=== PATIENT | male | born 1970 ===

== ENCOUNTER 2024-11-13 23:59 | Emergency (ER) | payer OTHER, SELFPAY ==
--- NOTE | ~2024-11-13 | CT_ITS ---
Non-contrast Head CT History: Seizure Technique: Axial non-contrast imaging of the brain was performed. Dose reduction technique was used on this scan by utilizing automated exposure control and iterative reconstruction technique. The dose -length product (DLP) was 681.00 mGy-cm. Findings: There is no evidence of intracranial hemorrhage, mass lesion, or acute infarct. Brain par enchyma appears normal. The ventricles and subarachnoid spaces are normal in size. The calvarium ap pears normal. Mild right maxillary sinus disease partially imaged. The remaining visualized paranasal sinuses and mastoid air cells are clear. Impression: No intracranial abnormality seen. Partially imaged mild right maxillary sinus disease. Reviewed, dictated and finalized at location . Impression: No intracranial abnormality seen. Partially imaged mild right maxillary sinus disease.
--- NOTE | ~2024-11-13 | XR_ITS ---
Portable chest x-ray Comparison: None Clinical History: Seizure Findings: Calcified right basilar granuloma present. Possible minimal bibasilar pulmonary edema or i nterstitial change. Cardiomediastinal silhouette is unremarkable. Bones and soft tissues are unremar kable. Impression: Possible mild bibasilar pulmonary edema or other chronic interstitial change. Calcified right basilar granuloma. Reviewed, dictated and finalized at location . Impression: Possible mild bibasilar pulmonary edema or other chronic interstitial change. Calcified right basilar granuloma.
[2024-11-14] VITALS (14 sets, daily range): BP systolic 172–195; BP diastolic 119–139; PULSE 112–131; RESP 18–30; O2SAT 93–97
--- NOTE | 2024-11-14 00:02 | ECG_ITS ---
Test Date: 2024-11-14 00:04:11 Measurements Intervals [place] Rate: 128 P: 66 AR: 165 QRS: 56 QRSD: 90 T: 53 QT: 322 QTc: 470 Interpretive Statements SINUS TACHYCARDIA LEFT VENTRICULAR HYPERTROPHY AND ST-T CHANGE [VOLTAGE CRITERIA PLUS ST/T ABNORMALITY] ABNORMAL ECG No previous ECG available for comparison Electronically Signed On 11-14-2024 11:34:38 CDT by Jovany Graves M.D.
[2024-11-14] MEDS: SODIUM CHLORIDE 0.9% IV 1,000 ML 999 ML IV CONT (00:22)
[2024-11-14 00:27] LABS: Hematocrit 43.4 % (42.0-52.0); Hemoglobin 15.3 g/dL (14.0-18.0); Immature Granulocyte Percent A 0.5 % (0-0.5); Immature Platelet Fraction Pct 3.8 % (0.9-11.2); Lymphocytes Absolute Auto 0.35 K/mm3 (0.9-3.2); Mean Corpuscular HGB Conc 35.3 g/dl (32-36); Mean Corpuscular Hemoglobin 34.9 pg (26-34); Mean Corpuscular Volume 99.1 fl (80-100); Nucleated Red Blood Cells Absolute Auto 0.000 K/mm3 (0.0-0.012); Nucleated Red Blood Cells Perc 0.0 % (0.0-0.2); Platelet Count Result 115 k/mm3 (150-375); Red Blood Count 4.38 M/mm3 (4.6-6.20); White Blood Count 8.8 K/mm3 (4.5-10.0)
[2024-11-14] MEDS: LORazepam INJ (*CRX) 2 MG/ML VIAL IV PUSH (00:28)
--- OUTSIDE RECORDS SUMMARY | 2024-11-14 00:31 | XMS_ITS | Clinical Summary ---
Author Organization [facility] Address [address] [place] [address] Care Team Providers Care Tamper Operator Name Role Phone Unavailable Primary Care Provider Unavailabl e Source Comments PLEASE NOTE, if this patient is a minor, it may be UNLAWFUL to discuss sensitive information that is contained in these records (such as FAMILY PLANNING, MENTAL HEALTH or SUBSTANCE ABUSE) with the minor patient's parent or other person without the patient's specific authorization.[facility] Allergies No known active allergies Medications No known medications Immunizations Immunization Administration Dates Next Due TDAP 06/03/2023 Social History Tobacco Use Types Packs/Day Years Used Date Smoking Tobacco: Never Assessed Social Connections Answer Date Recorded Connectedness 0 01/18/2024 Financial Resource Strain Answer Date R ecorded Financial Resource Strain 0 2023 Stress Answer Date Recorded Stress 0 06/03/2023 Physical Activity Answer Date Recorded Physical Activity 0 06/03/2023 Food Insecurity Answer Date Recorded Food 0 01/29/2024 Transportation Needs Answer Date Record ed Transportation 0 06/03/2023 Housing Stability Answer Date Recorded Housing 0 06/03/2023 Safety and Environment Answer Date Jorge rded Safety 0 06/03/2023 Utilities Answer Date Recorded Utilities 0 06/03/2023 Employment Answer Date Recorded Stress 0 01/18/2024 Sex and Gender Information Value Date Recorded Sex Assigned at Not on file Legal Sex Male 3:16 PM PST Gender Identity Not on file Sexual Orientation Not on file Last Filed Vital Signs Vital Sign Reading Time Taken Comments Blood Pressure 182/117 06/03/2023 7:25 PM [employer] Pulse 87 06/03/2023 7:25 PM [employer] Temperature 37.3 C (99.2 F) 06/03/2023 5:19 PM [employer] Respiratory Rate 18 06/03/2023 5:19 PM [employer] Oxygen Saturation 96% 06/03/2023 7:25 PM [employer]CIAL [employer] Inhaled Oxygen Concentration - - Weight - - Height - - Body Mass Index - - Plan of Treatment Health Maintenance Due Date Last Done Comments Anxiety Screening 1972 Diabetes Screening 1972 Hepatitis C Screening 1972 Lipid Screening 1972 Tobacco Screening 1972 HIV Screening 1987 Imm-Hepatitis B (1 of 3 - 19+ 3-dose series) 2 CT Colonography 2017 Colonoscopy 2017 Colorectal Cancer Screening 2017 FIT/gFOBT 2017 Fecal DNA 2017 Flexible Sigmoidoscopy 2017 Imm-Pneumococcal 50+ (1 of 1 - PCV) 2022 Imm-Zoster, Recombinant (1 of 2) 2022 Ete-EFFRA-32 (1 - 2023- season) 2024 Alcohol and Drug Screen 05/05/2024 Depression Annual Screen 05/05/2024 Hypertension Screening (#1) 06/02/2024 Imm-Influenza (#1) 2025 Imm-DTaP/Tdap/Td (2 - Td or Tdap) 06/03/2033 024
--- OUTSIDE RECORDS SUMMARY | 2024-11-14 00:31 | XMS_ITS | Clinical Summary ---
Author Organization [facility] Address [address] [place] [phone] Phone Care Team Providers Care Superintendent Car Construction Name Role Phone Provider, None Primary Care Provider Unavailabl e Allergies No known active allergies Medications sildenafil citrate (VIAGRA) 50 MG Tablet Take 1 Tablet by mouth daily. Active folic acid (FOLVITE) 1 MG Tablet Take 1 Tablet by mouth daily. 30 Tablet 04/03/2024 Active Multivitamin-Min erals Tablet Take 1 Tablet by mouth daily. 30 Tablet 04/03/2024 Active thiamine (VITAMIN B1) 100 MG Tablet Take 1 Tablet by mouth daily. 30 Tablet 04/11/2024 Active Active Problems Problem Noted Date Diagnosed Date Seizure 03/31/2024 Social History Tobacco Use Types Packs/Day Years Used Date Smoking Tobacco: Never Smokeless Tobacco: Never Tobacco Cessation:Counseling Given: Not Answered Alcohol Use Standard Drinks/Week Comments Yes 6 (1 standard drink = 0.6 oz pur e alcohol) Every day a couple cans a day [facility] Utilities Answer Date Recorded In the past 12 months has [employer] electric, gas, oil, or water company threatened to shut off services in your home? Patient declined 03/31/2024 Social Connection and Isolation Panel Answer Date Recorded In a typical week, how many times do you talk on the phone with family, friends, or neighbors? Patient declined 03/31/2024 How often do you get togethe r with friends or relatives? Patient declined 03/31/2024 How often do you attend anabaptism or anglican serv ices? Patient declined 03/31/2024 Do you belong to any clubs o r organizations such as anabaptism groups, unions, fraternal or athletic groups, or school groups? Patient declined 03/31/2024 How often do you attend meet ings of the clubs or organizations you belong to? Patient declined 03/31/2024 Are you , , di vorced, , never , or living with a partner? Patient declined 03/31/2024 AUDIT-C Answer Date Recorded Q1: How often do you have a drink containing alc ohol? Patient declined 03/31/2024 Q2: How many drinks containi ng alcohol do you have on a typical day when you are drinking? Patient declined 03/31/2024 Q3: How often do you have si x or more drinks on one occasion? Patient declined 03/31/2024 Overall Financial Resource Strain (CARDIA) Answe r Date Recorded How hard is it for you to pa y for the very basics like food, housing, medical care, and heating? Patient declined 03/31/2024 [facility] Occupat ional [facility] - Occupational Stress Questionnaire Answer Date Recorded Do you feel stress - tense, restless, nervous, or anxious, or unable to sleep at night because your mind is troubled all the time - these days? Patient declined 03/31/2024 Exercise Vital Sign Answer Date Recorde d On average, how many days pe r week do you engage in moderate to strenuous exercise (like a brisk walk)? Patient declined On average, how many minutes do you engage in exercise at this level? Patient declined 03/31/2024 Hunger Vital Sign Answer Date Recorded Within the past 12 months, y ou worried that your food would run out before you got the money to buy more. Patient declined Within the past 12 months, t he food you bought just didn't last and you didn't have money to get more. Patient declined PRAPARE - Transportation Answer Date Re corded In the past 12 months, has l ack of transportation kept you from medical appointments or from getting medications? Patient declined 03/31/2024 In the past 12 months, has l ack of transportation kept you from meetings, work, or from getting things needed for daily living? Patient declined 03/31/2024 Housing Stability Vital Sign Answer Joaquín e Recorded In the last 12 months, was t here a time when you were not able to pay the mortgage or rent on time? Patient declined 03/31/20 24 In the past 12 months, how m any times have you moved where you were living? 0 03/31/2024 At any time in the past 12 m [place], were you homeless or living in a group home (including now)? Patient declined 03/31/2024 Sexually Active Control Partners Comments Not Currently Sex and Gender Information Value Date Recorded Sex Assigned at Not on file Legal Sex Male 3:07 AM [employer] Gender Identity Male 03/31/2024 1:10 AM [employer] Sexual Orientation Not on file Last Filed Vital Signs Vital Sign Reading Time Taken Comments Blood Pressure 119/84 04/01/2024 11:53 PM [employer] Pulse 57 04/01/2024 11:53 PM [employer] Temperature 36.5 C (97.7 F) 04/01/2024 11:53 PM [employer] Respiratory Rate 18 04/01/2024 11:53 PM [employer] Oxygen Saturation 100% 04/01/2024 11:53 PM [employer] Inhaled Oxygen Concentration - - Weight 65.8 kg (145 lb) 03/31/2024 8:44 PM [employer] Height 182.9 cm (6') 03/31/2024 8:44 PM [employer] Body Mass Index 19.67 03/31/2024 8:44 PM [employer] Plan of Treatment Health Maintenance Due Date Last Done Comments Hepatitis C Virus (HCV) Screening 1972 Hepatitis B Immunization (1 of 3 - 19+ 3-dose series) 1991 Cologuard 2017 Colonoscopy 2017 Colorectal Cancer Screening 2017 Immunochemical Fecal Occult Blood 2017 Pneumococcal Immunization (5 0+ years) (1 of 1 - PCV) 2022 Zoster Immunization (1 of 2) 2022 SARS-COV-2 Immunization (1 - 2023-25 season) 2024 Influenza Immunization (#1) 2025 Respiratory Syncytial Virus (RSV) Immunization (Adult) (1 - 1-dose 75+ series) 2047 TdaP Immunization Completed 06/03/2023 Human Papillomavirus (HPV) Immunization Aged Out No longer eligible b ased on patient's age to complete this topic Meningococcal Immunization (ACWY) Aged Out No longer eligible based on patient's age to complete this topic Rotavirus Immunization Aged Out No lo nger eligible based on patient's age to complete this topic Insurance [facility] Advance Directives * Full Code (Latest Code Status on File) Date Activated Date Inactivated Comments 03/31/2024 9:12 PM CPR-Full Marii tment: FULL ARREST: Attempt Resuscitation/CPR wit intubation and mechanical ventilation. PRE-ARREST: Use entire range of life support measures to stabilize the patient. Care Teams Superintendent Car Construction Relationship Specialty Start Date End Date Provider, None SHAILA PCP - General 03/31/24
--- OUTSIDE RECORDS SUMMARY | 2024-11-14 00:31 | XMS_ITS | Clinical Summary ---
Author Organization [facility] Address Formerly [facility], [facility] [place] [address] Care Team Providers Care Maintenance Technician 2Nd Shift Name Role Phone None, Provider MD Primary Care Provider Unavaila ble Allergies No known active allergies Social History Tobacco Use Types Packs/Day Years Used Date Smoking Tobacco: Never Smokeless Tobacco: Never Alcohol Use Standard Drinks/Week Comments Yes 0 (1 standard drink = 0.6 oz pur e alcohol) once/twice a week Sex and Gender Information Value Date Recorded Sex Assigned at Not on file Legal Sex Male 8:06 PM CDT Gender Identity Not on file Sexual Orientation Not on file Last Filed Vital Signs Vital Sign Reading Time Taken Comments Blood Pressure 144/88 02/18/2021 9:18 PM CDT Pulse 86 02/18/2021 8:14 PM CDT Temperature 36.1 C (97 F) 02/18/2021 8:14 PM CDT Respiratory Rate 18 02/18/2021 8:14 PM CDT Oxygen Saturation 97% 02/18/2021 8:14 PM CDT Inhaled Oxygen Concentration - - Weight 74.5 kg (164 lb 3.9 oz) 02/18/2021 8:14 P M CDT Height 177.8 cm (5' 10) 02/18/2021 8:14 PM CDT Body Mass Index 23.57 02/18/2021 8:14 PM CDT Plan of Treatment Health Maintenance Due Date Last Done Comments Colorectal Cancer Screening Colonoscopy (10 Years) 1972 Annual Physical 1975 Hepatitis C 1990 Hepatitis B Vaccines (1 of 3 - 19+ 3-dose series) 1991 Pneumococcal Vaccine: 50+ Ye ars (1 of 1 - PCV) 2022 Zoster Vaccines (1 of 2) 2022 COVID-19 Vaccine (2023-2 5 season) 2024 DTaP, Tdap and Td Vaccines ( 2 - Td or Tdap) 04/30/2024 04/30/2014 Meningococcal B Vaccine Aged Out No l onger eligible based on patient's age to complete this topic Meningococcal Vaccine Aged Out No oliver gagan eligible based on patient's age to complete this topic RSV Immunizations Under 20 Months Aged Out No longer eligible based on patient's age to complete this topic Insurance [facility] [place] Care Teams Maintenance Technician 2Nd Shift Relationship Specialty Start Date End Date None, Provider, PCP - General 02/18/21
--- OUTSIDE RECORDS SUMMARY | 2024-11-14 00:31 | XMS_ITS | Referral Summary ---
Author Organization [facility] Address [address] [place] [address] [address] [place] [address] Care Team Providers Care Patient Intake Coordinator Name Role Phone Reese Ba MD Primary Care Provider [phone] Allergies No known active allergies Medications multivitamin with minerals tablet Take 1 tablet by mouth daily 04/03/2024 Active Active Problems Problem Noted Date Diagnosed Date Facial paralysis 04/26/2024 Assessment & Plan (04/26/2024 10:43 AM HEEL SORTER): Facial paralysis since hit by [employer] where he was working fell off wall where he was working. Functional problem with drooling since then. Well adult exam 04/26/2024 Assessment & Plan (04/26/2024 10:39 AM HEEL SORTER): Screening labs ordered. Alcohol abuse 04/22/2024 Assessment & Plan (04/26/2024 10:38 AM HEEL SORTER): No alcohol since hospitalization. Declines referral to outpatient rehab. No problem with cravings. Immunizations Immunization Administration Dates Next Due Influenza, Unspecified 04/26/2024(Deferr ed: Patient decision),04/26/2023(Deferred: Patient decision) Td, adsorbed 06/20/2013 Tdap 06/03/2023 Social History Tobacco Use Types Packs/Day Years Used Date Smoking Tobacco: Never Passive Smoke Exposure: Never Smokeless Tobacco: Never Tobacco Cessation:Counseling Given: No AUDIT-C Answer Date Recorded Q1: How often do you have a drink containing alcohol? 4 or more times a week 04/26/2024 Q2: How many drinks containi ng alcohol do you have on a typical day when you are drinking? 5 or 6 Q3: How often do you have si x or more drinks on one occasion? Daily or almost daily 04/26/2024 PHQ-2 Answer Date Recorded PHQ-2 Total Score (If total score is 3 or more points, staff should administer the PHQ-9) 0 04/26/2024 Sex and Gender Information Value Date Recorded Sex Assigned at Not on file Legal Sex Male 10:09 AM HEEL SORTER Gender Identity Not on file Sexual Orientation Not on file Last Filed Vital Signs Vital Sign Reading Time Taken Comments Blood Pressure 124/86 04/26/2024 9:41 AM HEEL SORTER Pulse 88 04/26/2024 9:41 AM HEEL SORTER Temperature 36.6 C (97.9 F) 04/26/2024 9:41 AM HEEL SORTER Respiratory Rate 18 04/26/2024 9:41 AM HEEL SORTER Oxygen Saturation 97% 04/26/2024 9:41 AM HEEL SORTER Inhaled Oxygen Concentration - - Weight 63.6 kg (140 lb 4.8 oz) 04/26/2024 9:41 A M HEEL SORTER Height 177.8 cm (5' 10) 04/26/2024 9:41 AM HEEL SORTER Body Mass Index 20.13 04/26/2024 9:41 AM HEEL SORTER Plan of Treatment Not on file Insurance Care Teams Patient Intake Coordinator Relationship Specialty Start Date End Date Reese Ba MD [address] [place] [id number] PCP - General Family Medicine 04/26/24
--- OUTSIDE RECORDS SUMMARY | 2024-11-14 00:31 | XMS_ITS | Clinical Summary ---
Author Organization [facility] Address [address] [place] [address] [address] [place] [address] Care Team Providers Care Financial Services Internship Name Role Phone Reese Ba MD Primary Care Provider [phone]- [phone] Allergies No known active allergies Medications multivitamin with minerals tablet Take 1 tablet by mouth daily 04/03/2024 Active Active Problems Problem Noted Date Diagnosed Date Facial paralysis 04/26/2024 Assessment & Plan (04/26/2024 10:43 AM HARDWARE SALES ASSISTANT): Facial paralysis since hit by [employer] where he was working fell off wall where he was working. Functional problem with drooling since then. Well adult exam 04/26/2024 Assessment & Plan (04/26/2024 10:39 AM HARDWARE SALES ASSISTANT): Screening labs ordered. Alcohol abuse 04/22/2024 Assessment & Plan (04/26/2024 10:38 AM HARDWARE SALES ASSISTANT): No alcohol since hospitalization. Declines referral to outpatient rehab. No problem with cravings. Immunizations Immunization Administration Dates Next Due Influenza, Unspecified 04/26/2024(Deferr ed: Patient decision),04/26/2023(Deferred: Patient decision) Td, adsorbed 06/20/2013 Tdap 06/03/2023 Surgical History Surgery Date Site/Laterality Comments WRIST FRACTURE SURGERY Bilateral hardware CERVICAL SPINE SURGERY hardware CLAVICLE SURGERY FEMUR FRACTURE SURGERY Left ANKLE SURGERY Left fracture repair Family History Medical History Relation Name Comments No Known Problems Child No Known Problems Father No Known Problems Mother No Known Problems Sister 1 No Known Problems Sister 2 No Known Problems Sister 3 Relation Name Status Comments Child Alive Father Alive Mother Alive Sister 1 Alive Sister 2 Alive Sister 3 Alive Social History Tobacco Use Types Packs/Day Years [...] on file Legal Sex Male 10:09 AM [employer]IST[employer] Gender Identity Not on file Sexual Orientation Not on file Obstetrics History Last Filed Vital Signs Vital Sign Reading Time Taken Comments Blood Pressure 124/86 04/26/2024 9:41 AM HARDWARE SALES ASSISTANT Pulse 88 04/26/2024 9:41 AM HARDWARE SALES ASSISTANT Temperature 36.6 C (97.9 F) 04/26/2024 9:41 AM HARDWARE SALES ASSISTANT Respiratory Rate 18 04/26/2024 9:41 AM HARDWARE SALES ASSISTANT Oxygen Saturation 97% 04/26/2024 9:41 AM HARDWARE SALES ASSISTANT Inhaled Oxygen Concentration - - Weight 63.6 kg (140 lb 4.8 oz) 04/26/2024 9:41 A M [employer]WARE SALES ASSISTANT Height 177.8 cm (5' 10) 04/26/2024 9:41 AM HARDWARE SALES ASSISTANT Body Mass Index 20.13 04/26/2024 9:41 AM HARDWARE SALES ASSISTANT Plan of Treatment Health Maintenance Due Date Last Done Comments Colon Cancer Screening-Colonoscopy 1972 Hepatitis C Screening 1972 Prostate Cancer Screening-PSA 1972 Hepatitis B Screening 1990 Zoster Vaccine (1 of 2) 2022 Covid-19 Vaccine (2 - 2023-2 5 season) 2024 04/23/2021 Influenza Vaccine (Season Ended) 2025 Depression Screening 04/26/2025 04/26/2024 Regular Well Visit/Exam 18-64 04/26/2025 04/26/2024 DTaP/Tdap/Td Vaccine (2 - Td or Tdap) 06/03/2033 06/03/2023, 06/20/2013 Pneumococcal vaccine <65 Aged Out No longer eligible based on patient's age to complete this topic Insurance Care Teams Financial Services Internship Relationship Specialty Start Date End Date Reese Ba MD [address] [place] [phone] PCP - General Family Medicine 04/26/24
--- NOTE | 2024-11-14 00:32 | PC.NURSE ---
Upon investigation, it appears that this pt could be experiencing alcohol withdrawals. Pt's reports that pt had 2 seizures in March related to alcohol withdrawals. Pt denies any alcohol use, but pt's states that he has been drinking beer and found an empty crown bottle in the garage.
--- OUTSIDE RECORDS SUMMARY | 2024-11-14 00:32 | XMS_ITS | Data Portability ---
Author Organization [facility] Address [address] [place] [address] Care Team Providers Care Conduit Mechanic Name Role Phone AGNIESZKA MARADIAGA Primary Care Provider Assessment No assessment recorded. Plan of Treatment Reminders Order Date Submit Date Provider Last Modified By Organization Details Last Modified Time Details Appointments None recorded. Lab testostero ne, total, serum 2018 [facility], [address], [place], [address], 9 06:19:52 lipid panel, serum 2018 019 [facility], 2022 Kevin Ronqu[address], [address], [place], [address], 9 06:19:52 CMP, serum or plasma 2018 019 [facility], 2022 Kevin Ronquillo, [address], [place], [address], 9 06:19:51 CBC w/ auto diff 2018 [facility], 2022 Kevin Ronquillo, [address], [place], [address], 9 06:19:51 TSH, ultra-sens itive, serum 2018 [facility], 2022 Kevin Ronquillo, [address], [place], [address], 9 06:19:53 prolactin, serum 112018 [facility], 2022 Kevin Ronquillo, [address], [place], [address], 9 06:19:54 PSA, total, serum or plasma 2018 [facility] Kevin Ronquillo, [address], [place], [address], 9 06:19:54 lipid panel, serum 2017 [facility], 20[facility] Kevin Ronquillo, [address], [place], [address], 8 07:10:35 CMP, serum or plasma 2017 018 [facility], [facility] Kevin Ronquillo, [address], [place], [address], 8 07:10:35 Referral None recorded. Procedures None recorded. Surgeries None recorded. Imaging None recorded. Medication Orders sildenafil 50 mg tablet 2018 019 [id number], [address], [place], [id number], 9 10:44:00 amoxicilli n 875 mg tablet [email or web address] [id number], [address], [place], [id number], 9 10:28:08 Patient TargetsNo targets recorded. Patient Instructions Encounter Date Encounter Id Patient Instructions Last Modified By Organization Details Last Modified Time 05/04/2018 [id number] Acute Sinusitis: Care Instructions amueth Not available 05/04/2018 10:53:05 Reason for Referral None Reported. Results Created Date Observation Date Name Description Value Unit Range Abnormal Flag Note LastModifiedBy Organization Detail LastModifiedTime 05/06/19 18 05/07/2017 CMP, serum or plasm a glucose, serum 77 mg/dL 65-99 Speci men recei padma in conta ct with cells . No visib le hemol ysis prese nt. Howev er GLUC may be decre ased and K incre ased. Clini patricia corre latio n indic ated. Not Available [facility] ([facility]) [address] [facility], [place], [address], 05/07/2017 07:10:35 05/06/19 18 05/07/2017 CMP, serum or plasm a BUN 16 mg/dL 6-24 Not Available [facility] ([facility]) [address] [place], [address], 05/07/2017 07:10:35 05/06/19 18 05/07/2017 CMP, serum or plasm a creatinine, serum 0.84 mg/dL 0.76-1 .27 Not Available [facility] ([facility]) [address] [place], [address], 05/07/2017 07:10:35 05/06/19 18 05/07/2017 CMP, serum or plasm a eGFR if nonafricn AM 106 mL/mi n/1.7 3 >59 Not Available [facility] ([facility]) [address] [facility], [place], [address], 05/07/2017 07:10:35 05/06/19 18 05/07/2017 CMP, serum or plasm a eGFR if africn AM 123 mL/mi n/1.7 3 >59 Not Available [facility] ([facility]) [address] [place], [address], 05/07/2017 07:10:35 05/06/19 18 05/07/2017 CMP, serum or plasm a BUN/creatini ne ratio 19 9-20 Not Available [facility]) [address] [place], [address], 05/07/2017 07:10:35 05/06/19 18 05/07/2017 CMP, serum or plasm a sodium, serum 139 mmol/ L 134-14 4 Not Available [facility] ([facility]) [address] [facility], [place], [address], 05/07/2017 07:10:35 05/06/19 18 05/07/2017 CMP, serum or plasm a potassium, serum 4.4 mmol/ L 3.5-5. 2 Speci men recei padma in conta ct with cells . No visib le hemol ysis prese nt. Howev er GLUC may be decre ased and K incre ased. Clini patricia corre latio n indic ated. Not Available [facility] ([facility]) [address] [facility], [place], [address], 05/07/2017 07:10:35 05/06/19 18 05/07/2017 CMP, serum or plasm a chloride, serum 97 mmol/ L 96-106 Not Available [facility] ([facility]) [address] [place], [address], 05/07/2017 07:10:35 05/06/19 18 05/07/2017 CMP, serum or plasm a carbon dioxide, total 23 mmol/ L 18-29 Not Available [facility] ([facility]) [address] [facility], [place], [address], 05/07/2017 07:10:35 05/06/19 18 05/07/2017 CMP, serum or plasm a calcium, serum 9.3 mg/dL 8.7-10 .2 Not Available [facility] ([facility]) [address] [place], [address], 05/07/2017 07:10:35 05/06/19 18 05/07/2017 CMP, serum or plasm a protein, total, serum 7.8 g/dL 6.0-8. 5 Not Available [facility] ([facility]) [address] [place], [address], 05/07/2017 07:10:35 05/06/19 18 05/07/2017 CMP, serum or plasm a albumin, serum 4.9 g/dL 3.5-5. 5 Not Available [facility] ([facility]) [address] [facility] [place], [address], 05/07/2017 07:10:35 05/06/19 18 05/07/2017 CMP, serum or plasm a globulin, total 2.9 g/dL 1.5-4. 5 Not Available [facility] ([facility]) [address] [facility] [place], [address], 05/07/2017 07:10:35 05/06/19 18 05/07/2017 CMP, serum or plasm a A/G ratio 1.7 1.2-2. 2 Not Available [facility] ([facility]) [address] [facility] [place], [address], 05/07/2017 07:10:35 05/06/1905/07/2017 CMP, serum or plasm a bilirubin, total 2.0 mg/dL 0.0-1. 2 above high normal Not Available [facility] ([facility]) [address] [facility] [place], [address], 05/07/2017 07:10:35 05/06/19 18 05/07/2017 CMP, serum or plasm a alkaline phosphatase, S 69 IU/L 39-117 Not Available [facility]) [address] [facility] [place], [address], 05/07/2017 07:10:35 05/06/1905/07/2017 CMP, serum or plasm a AST (SGOT) 31 IU/L 0-40 Not Available [facility] ([facility]) [address] [facility] [place], [address], 05/07/2017 07:10:35 05/06/1905/07/2017 CMP, serum or plasm a ALT (SGPT) 35 IU/L 0-44 Not Available [facility] ([facility]) [address] [facility] [place], [address], 05/07/2017 07:10:35 05/06/19 18 05/07/2017 lipid panel , serum cholesterol, total 179 mg/dL 100-19 9 Not Available [facility] ([facility]) [address] [place], [address], 05/07/2017 07:10:35 05/06/19 18 05/07/2017 lipid panel , serum triglyceride s 106 mg/dL 0-149 Not Available [facility]) [address] [place], [address], 05/07/2017 07:10:35 05/06/19 18 05/07/2017 lipid panel , serum HDL cholesterol 60 mg/dL >39 Not Available [facility] [address] [place], [address], 05/07/2017 07:10:35 05/06/19 18 05/07/2017 lipid panel , serum VLDL cholesterol patricia 21 mg/dL 5-40 Not Available [facility]) [address], [place], [address], 05/07/2017 07:10:35 05/06/19 18 05/07/2017 lipid panel , serum LDL cholesterol calc 98 mg/dL 0-99 Not Available [facility] ([facility]) [address] [place], [address], 05/07/2017 07:10:35 05/06/19 18 05/07/2017 lipid panel , serum comment: SECURITY INSPECTOR Not Available [facility] ([facility]) [address] [place], [address], 05/07/2017 07:10:35 03/30/20 19 03/31/2019 CBC w/ auto diff WBC 10.9 x10e3 /uL 3.4-10 .8 above high normal Not Available [facility] ([facility]) [address] [place], [address], 03/31/2019 06:19:51 03/30/20 19 03/31/2019 CBC w/ auto diff RBC 4.88 x10e6 /uL 4.14-5 .80 Not Available [facility] ([facility]) [address] [place], [address], 03/31/2019 06:19:51 03/30/20 19 03/31/2019 CBC w/ auto diff hemoglobin 16.3 g/dL 13.0-1 7.7 Not Available [facility] ([facility]) [address] [place], [address], 03/31/2019 06:19:51 03/30/20 19 03/31/2019 CBC w/ auto diff hematocrit 45.9 % 37.5-5 1.0 Not Available [facility] ([facility]) [address] [place], [address], 03/31/2019 06:19:51 03/30/2003/31/2019 CBC w/ auto diff MCV 94 fL 79-97 Not Available [facility] ([facility]) [address] [place], [address], 03/31/2019 06:19:51 03/30/20 19 03/31/2019 CBC w/ auto diff MCH 33.4 pg 26.6-3 3.0 above high normal Not Available [facility] ([facility]) [address] [place], [address], 03/31/2019 06:19:51 03/30/20 19 03/31/2019 CBC w/ auto diff MCHC 35.5 g/dL 31.5-3 5.7 Not Available [facility] ([facility]) [address] [place], [address], 03/31/2019 06:19:51 03/30/20 19 03/31/2019 CBC w/ auto diff RDW 12.4 % 12.3-1 5.4 Not Available [facility] ([facility]) [address] [facility], [place], [address], 03/31/2019 06:19:51 03/30/20 19 03/31/2019 CBC w/ auto diff platelets 178 x10e3 /uL 150-45 0 Not Available [facility] ([facility]) [address] [facility], [place], [address], 03/31/2019 06:19:51 03/30/20 19 03/31/2019 CBC w/ auto diff neutrophils 78 % not estab. Not Available [facility] ([facility]) [address] [facility], [place], [address], 03/31/2019 06:19:51 03/30/20 19 03/31/2019 CBC w/ auto diff lymphs 11 % not estab. Not Available [facility] ([facility]) [address] [facility], [place], [address], 03/31/2019 06:19:51 03/30/2003/31/2019 CBC w/ auto diff monocytes 9 % not estab. Not Available [facility] ([facility]) [address] [facility], [place], [address], 03/31/2019 06:19:51 03/30/20 19 03/31/2019 CBC w/ auto diff eos 1 % not estab. Not Available [facility] ([facility]) [address] [facility], [place], [address], 03/31/2019 06:19:51 03/30/2003/31/2019 CBC w/ auto diff basos 1 % not estab. Not Available [facility] ([facility]) [address] [facility], [place], [address], 03/31/2019 06:19:51 03/30/2003/31/2019 CBC w/ auto diff immature cells SECURITY INSPECTOR Not Available [facility]) [address] [facility], [place], [address], 03/31/2019 06:19:51 03/30/20 19 03/31/2019 CBC w/ auto diff neutrophils (absolute) 8.6 x10e3 /uL 1.4-7. 0 above high normal Not Available [facility] ([facility]) [address] [place], [address], 03/31/2019 06:19:51 03/30/20 19 03/31/2019 CBC w/ auto diff lymphs (absolute) 1.2 x10e3 /uL 0.7-3. 1 Not Available [facility] ([facility]) [address] [place], [address], 03/31/2019 06:19:51 03/30/20 19 03/31/2019 CBC w/ auto diff monocytes(ab solute) 0.9 x10e3 /uL 0.1-0. 9 Not Available [facility] ([facility]) [address] [place], [address], 03/31/2019 06:19:51 03/30/2003/31/2019 CBC w/ auto diff eos (absolute) 0.1 x10e3 /uL 0.0-0. 4 Not Available [facility] ([facility]) [address] [place], [address], 03/31/2019 06:19:51 03/30/2003/31/2019 CBC w/ auto diff baso (absolute) 0.1 x10e3 /uL 0.0-0. 2 Not Available [facility] ([facility]) [address] [place], [address], 03/31/2019 06:19:51 03/30/2003/31/2019 CBC w/ auto diff immature granulocytes 0 % not estab. Not Available [facility] ([facility]) [address] [place], [address], 03/31/2019 06:19:51 03/30/20 19 03/31/2019 CBC w/ auto diff immature grans (abs) 0.0 x10e3 /uL 0.0-0. 1 Not Available [facility] ([facility]) [address] [facility] [place], [address], 03/31/2019 06:19:51 03/30/2003/31/2019 CBC w/ auto diff NRBC SECURITY INSPECTOR Not Available [facility] ([facility]) [address] [facility] [place], [address], 03/31/2019 06:19:51 03/30/2003/31/2019 CBC w/ auto diff hematology comments: SECURITY INSPECTOR Not Available [facility] ([facility]) [address] [facility] [place], [address], 03/31/2019 06:19:51 03/30/2003/31/2019 CMP, serum or plasm a glucose 98 mg/dL 65-99 Not Available [facility] ([facility]) [address] [place], [address], 03/31/2019 06:19:51 03/30/2003/31/2019 CMP, serum or plasm a BUN 13 mg/dL 6-24 Not Available [facility] ([facility]) [address] [place], [address], 03/31/2019 06:19:51 03/30/2003/31/2019 CMP, serum or plasm a creatinine 1.04 mg/dL 0.76-1 .27 Not Available [facility] ([facility]) [address] [place], [address], 03/31/2019 06:19:51 03/30/2003/31/2019 CMP, serum or plasm a eGFR if nonafricn AM 86 mL/mi n/1.7 3 >59 Not Available [facility] ([facility]) [address] [place], [address], 03/31/2019 06:19:51 03/30/2003/31/2019 CMP, serum or plasm a eGFR if africn AM 99 mL/mi n/1.7 3 >59 Not Available [facility] ([facility]) [address] [place], [address], 03/31/2019 06:19:51 03/30/20 19 03/31/2019 CMP, serum or plasm a BUN/creatini ne ratio 13 9-20 Not Available [facility] ([facility]) [address] [place], [address], 03/31/2019 06:19:51 03/30/20 19 03/31/2019 CMP, serum or plasm a sodium 141 mmol/ L 134-14 4 Not Available [facility] ([facility]) [address] [place], [address], 03/31/2019 06:19:51 03/30/2003/31/2019 CMP, serum or plasm a potassium 4.5 mmol/ L 3.5-5. 2 Not Available [facility] ([facility]) [address] [place], [address], 03/31/2019 06:19:51 03/30/2003/31/2019 CMP, serum or plasm a chloride 101 mmol/ L 96-106 Not Available [facility] ([facility]) [address] [place], [address], 03/31/2019 06:19:51 03/30/2003/31/2019 CMP, serum or plasm a carbon dioxide, total 25 mmol/ L 20-29 Not Available [facility] ([facility]) [address] [place], [address], 03/31/2019 06:19:51 03/30/2003/31/2019 CMP, serum or plasm a calcium 9.0 mg/dL 8.7-10 .2 Not Available [facility] ([facility]) [address] [place], [address], 03/31/2019 06:19:51 03/30/20 19 03/31/2019 CMP, serum or plasm a protein, total 6.9 g/dL 6.0-8. 5 Not Available [facility] ([facility]) [address] [place], [address], 03/31/2019 06:19:51 03/30/20 19 03/31/2019 CMP, serum or plasm a albumin 4.2 g/dL 3.5-5. 5 Not Available [facility] ([facility]) [address] [place], [address], 03/31/2019 06:19:51 03/30/2003/31/2019 CMP, serum or plasm a globulin, total 2.7 g/dL 1.5-4. 5 Not Available [facility] ([facility]) [address] [place], [address], 03/31/2019 06:19:51 03/30/2003/31/2019 CMP, serum or plasm a A/G ratio 1.6 1.2-2. 2 Not Available [facility] ([facility]) [address] [place], [address], 03/31/2019 06:19:51 03/30/2003/31/2019 CMP, serum or plasm a bilirubin, total 2.1 mg/dL 0.0-1. 2 above high normal Not Available [facility] ([facility]) [address] [place], [address], 03/31/2019 06:19:51 03/30/2003/31/2019 CMP, serum or plasm a alkaline phosphatase 119 IU/L 39-117 above high normal Not Available [facility] ([facility]) [address] [place], [address], 03/31/2019 06:19:51 03/30/2003/31/2019 CMP, serum or plasm a AST (SGOT) 87 IU/L 0-40 above high normal Not Available [facility] ([facility]) [address] [facility], [place], [address], 03/31/2019 06:19:51 03/30/2003/31/2019 CMP, serum or plasm a ALT (SGPT) 190 IU/L 0-44 above high normal Not Available [facility] ([facility]) [address] [facility], [place], [address], 03/31/2019 06:19:51 03/30/2003/31/2019 lipid panel , serum cholesterol, total 152 mg/dL 100-19 9 Not Available [facility] ([facility]) [address] [facility], [place], [address], 03/31/2019 06:19:52 03/30/2003/31/2019 lipid panel , serum triglyceride s 55 mg/dL 0-149 Not Available [facility] ([facility]) [address] [facility], [place], [address], 03/31/2019 06:19:52 03/30/2003/31/2019 lipid panel , serum HDL cholesterol 68 mg/dL >39 Not Available [facility] ([facility]) [address] [facility], [place], [address], 03/31/2019 06:19:52 03/30/2003/31/2019 lipid panel , serum VLDL cholesterol patricia 11 mg/dL 5-40 Not Available [facility] ([facility]) [address] [facility], [place], [address], 03/31/2019 06:19:52 03/30/2003/31/2019 lipid panel , serum LDL cholesterol calc 73 mg/dL 0-99 Not Available [facility] ([facility]) [address] [facility], [place], [address], 03/31/2019 06:19:52 03/30/2003/31/2019 lipid panel , serum comment: SECURITY INSPECTOR Not Available [facility] ([facility]) [address] [place], [address], 03/31/2019 06:19:52 03/30/2003/31/2019 testo stero ne, total , serum testosterone , serum 417 NG/dL 264-91 6 Adult male refer ence inter christi is based on a popul ation of healt hy nonob nyla males (BMI <30) betwe en 19 and 39 years old. Wilber vasquez, et.al . JCEM 2017, 102;1 161-1 173. PMID: 22443 103. Not Available [facility] ([facility]) [address] [place], [address], 03/31/2019 06:19:52 03/30/2003/31/2019 TSH, ultra -sens itive , serum TSH 1.510 uIU/m L 0.450- 4.500 Not Available [facility] ([facility]) [address] [place], [address], 03/31/2019 06:19:53 03/30/2003/31/2019 prola ctin, serum prolactin 5.6 NG/mL 4.0-15 .2 Not Available [facility] ([facility]) [address] [place], [address], 03/31/2019 06:19:53 03/30/2003/31/2019 PSA, total , serum or plasm a prostate specific Ag, serum 0.8 NG/mL 0.0-4. 0 Alexandre ECLIA metho dolog y. Accor ding to the Ameri can Urolo gical Assoc iatio n, Serum PSA shoul d decre ase and remai n at undet ectab le level s after radic al prost atect idana. The AUA defin es bioch emica l recur rence as an initi al PSA value 0.2 ng/mL or great er follo wed by a subse quent confi rmato ry PSA value 0.2 ng/mL or great er. Value s obtai dyana with diffe rent assay metho ds or kits canno t be used inter jimenez tracie . Resul ts canno t be inter prete d as absol swathi evide nce of the prese nce or absen ce of elena jurado . Not Available [facility] ([facility]) [address] [facility], [place], [address], 03/31/2019 06:19:54 04/26/2004/27/2019 hepat ic funct ion panel , serum protein, total 7.1 g/dL 6.0-8. 5 Not Available [facility] ([facility]) [address] [place], [address], 04/27/2019 06:10:06 04/26/2004/27/2019 hepat ic funct ion panel , serum albumin 4.4 g/dL 3.5-5. 5 Not Available [facility] ([facility]) [address] [place], [address], 04/27/2019 06:10:06 04/26/20 19 04/27/2019 hepat ic funct ion panel , serum bilirubin, total 1.2 mg/dL 0.0-1. 2 Not Available [facility] ([facility]) [address] [place], [address], 04/27/2019 06:10:06 04/26/2004/27/2019 hepat ic funct ion panel , serum bilirubin, direct 0.30 mg/dL 0.00-0 .40 Not Available [facility] ([facility]) [address] [place], [address], 04/27/2019 06:10:06 04/26/2004/27/2019 hepat ic funct ion panel , serum alkaline phosphatase 97 IU/L 39-117 Not Available [facility] [address] [place], [address], 04/27/2019 06:10:06 04/26/2004/27/2019 hepat ic funct ion panel , serum AST (SGOT) 86 IU/L 0-40 above high normal Not Available [facility] ([facility]) [address] [place], [address], 04/27/2019 06:10:06 04/26/20 19 04/27/2019 hepat ic funct ion panel , serum ALT (SGPT) 291 IU/L 0-44 above high normal Not Available [facility] ([facility]) [address] [place], [address], 04/27/2019 06:10:06 04/26/20 19 04/27/2019 hepat itis panel (A+B+ C), acute , serum hep A Ab, IgM Negati ve negati ve Not Available [facility] ([facility]) [address] [place], [address], 04/27/2019 06:10:06 04/26/20 19 04/27/2019 hepat itis panel (A+B+ C), acute , serum HBsAg screen Negati ve negati ve Not Available [facility] ([facility]) [address] [place], [address], 04/27/2019 06:10:06 04/26/2004/27/2019 hepat itis panel (A+B+ C), acute , serum hep B core Ab, IgM Negati ve negati ve Not Available [facility] ([facility]) [address] [place], [address], 04/27/2019 06:10:06 04/26/20 19 04/27/2019 hepat itis panel (A+B+ C), acute , serum hep C virus Ab <0.1 s/co_ ratio 0.0-0. 9 Negat sybil: < 0.8 Indet ermin ate: 0.8 - 0.9 Posit sybil: > 0.9 The CDC recom mends that a posit sybil HCV antib sariah resul t be follo wed up with a HCV Nucle ic Acid Ampli ficat ion test (5507 13). Not Available [facility] ([facility]) [address], [place], [address], 04/27/2019 06:10:06 05/07/19 20 05/06/2019 US, liver No observ ation record ed. [facility] [address] [address], [place], [address], 05/07/2019 09:23:31 Result Notes None recorded. Problems Name Problem SNOMED Code Status Onset Date Resolution Date Notes Provider Name and Address Organization Details Recorded Time Central cord syndrome 884516619 Active 019 Not Available [facility] 22:19:48 Problem Notes None recorded. Procedures Surgical History Date Name Laterality Status Provider Name and Address Organization Details Recorded Time 9 Unlisted px neck/thorax completed Lety Mead [facility] 05/06/2017 11:58:38 Imaging Results None recorded. Procedure Notes None recorded. Medical Equipment None Reported. Allergies No known drug allergies Medications Name Sig Start Date Stop Date Status Note LastModified by Organization Details LastModified Time sildenafil 50 mg tablet TAKE 1 TABLET BY MOUTH EVERY DAY active Not Available Not Available No t Available amoxicillin 875 mg tablet Take 1 tablet twice a day by oral route for 10 days. 03/29 completed Not Available Not Available Not Available Vitals Date Recorded Body height Body mass index (BMI) Body weight Oxygen saturation Oxygen saturation in Arterial blood by Pulse oximetry Heart rate Body temperature Systolic And Diastolic Provider Name and Address Organization Details Last Updated DateTime 8 178.44 cm 23.6 kg/m2 20764.8 4 g 97 % 97 % 67 /min 97.5 [degF] 136/92 mm[Hg] Lety Mead [facility] 8 11:57:17 Date Recorded Body height Body mass index (BMI) Body weight Heart rate Body temperature Respiratory rate Systolic And Diastolic Provider Name and Address Organization Details Last Updated DateTime 9 178.44 cm 22.4 kg/m2 81158.8 g 70 /min 100 [degF] 18 /min 110/68 mm[Hg] Naseem Soriano MA [facility] 9 10:28:59 Date Recorded Body height Body mass index (BMI) Body weight Oxygen saturation Oxygen saturation in Arterial blood by Pulse oximetry Heart rate Body temperature Systolic And Diastolic Provider Name and Address Organization Details Last Updated DateTime 8 178.44 cm 23.4 kg/m2 78597.9 5 g 97 % 97 % 71 /min 98.1 [degF] 122/78 mm[Hg] Anju Hudson MA [facility] 8 10:38:09 Social History Question Answer Notes LastModified by Organizat ion Details LastModified Time Tobacco Smoking Status Never [facility] 11:57:47 What Was The Date Of Your Most Recent Tobacco Screening? 05/04/2018 Information n ot available 11/26/2018 How Much Tobacco Do You Smoke? No Information not available 05/04/2018 How Many Years Have You Smoked Tobacco? 0 Information not available 05/04/2018 Sex: Unknown Functional Status None recorded. Mental Status None recorded. Family History Relationship Description Onset Age of this Age Resolved Age Notes LastModified by Organization Details LastModified Time Father No current problems or disability [email or web address] Not available 05/04 10:35:34 Mother No current problems or disability [email or web address] Not available 05/04 10:35:34 Medical History Condition Response Coronary Artery Disease N Other N Atrial Fibrillation N High Blood Pressure N Thyroid Problems N Kidney or Bladder Problems N Depression N COPD N Blood Clots N GI Problems N Skin Problems N Anemia N Heart Attack ([place]) N Diabetes N Anxiety Disorder N Muscle, Joint, or Bone Problems N Seizures/Epilepsy N Acid Reflux (GERD) N Cancer N Stroke N Allergies N Asthma N High Cholesterol N Hepatitis N Liver Disease N Headaches N Osteoporosis N Heart Failure N Past Encounters Encounter ID Performer Location Encounter Start Date Encounter Closed Date Diagnosis/Indication Diagnosis SNOMED-CT Code Diagnosis ICD10 Code Diagnosis Note [id number] CURRY Martin NP [facility] [facility] [address] [place] [address] 05/06/2017 11:29:30 05/08/2017 17:04:20 Hyperlipidemia screening [id number] Z13.220 Obtain lab Prehypertension [id number] R03.0 Obtain lab [id number] CURRY Martin NP [facility] [address] [place] [address] 05/04/2018 10:28:32 05/06/2018 11:29:49 Acute sinusitis [id number] J01.90 -Start oral antibiotic s-OTC antihistam rut, flonase prn-Saline gargles-Re st-Tylenol /ibuprofen prn-F/u prn [id number] AUNDREA TRACY [facility] [address] [place] [address] 03/29/2019 10:17:35 03/31/2019 16:35:22 Complaining of erectile dysfunction [id number] N52.9 patient complains of ED problem is usually starting and maintain erection. He is often out of town and when he comes in he is unable to be intimate with , who is now putting alot of pressure on him. - checking labs- advised to cut down on drinking- deng burton will help, 20 mins 5x week- will call with results- may try sildenafil 50 mg , no cardiac risk factors but advised of side effects. Family his tory of malignant neoplasm of prostate [id number] Z80.42 Patients father diagnosed with prostate cancer in his 70's. will check PSA. Upper resp iratory infection [id number] J06.9 Patient woke up this moring with fever and cough. feeling okay overall. On exam ungs are clear, tm normal, no cough during exam. Temp 100.0. denies diarrhea or constipati on - tylenol or ibuprofen for fever- f/u if not improving Health Concerns Section Related Observation LastModified by Organization Detai ls LastModified Time None Recorded Concern Status LastModified by Organization Details LastModified Time None Recorded Advance Directives Directive None Recorded Payers Insurance Date Sequence Insurance Name Policy Number Policy Mcelroy Covered Member ID Mcelroy Member ID Guarantor Name 03/27/2019 1 [employer] (POS) [id number] Perry Quezada [id number] Perry Quezada Notes Date Note Type Note Provider Name and Address Organization Details Recorded Time 05/06/2017 text/html Patient presents today to establish care. Denies major past medical history. Denies family history of DM, high cholesterol. [place]s [place] for a living. Denies smoking cigarettes. CURRY Martin NP Attn: Accounting,[address] , [place], [address], [facility] 05/12/2017 14:14:27 05/04/2018 text/html Patient presents today for c/o nasal congestion/pressu re, post nasal drainage, mild sore throat, ear pain/pressure x 7 days. Taking advil and robitussin prn without relief. Denies chest congestion, wheezing, SOB. CURRY Martin NP Attn: Accounting,[address] [facility], [place], [address], [facility] 05/04/2018 14:59:05 03/29/2019 text/html Perry is a 48 YO M presenting for check up and colon cancer screening He has not been feeling well since yesterday. Woke up with fever and a cough. No vomiting, diarrhea, malaise. Kid is at home sick as well. His father was diagnosed with prostate cancer and he wants to be sure he does not have it. He denies smoking. He does drink alcohol mutiple times oper week. usually crown and coke. 1998 broke neck and left hip when skydiving. He has central spinal cord syndrome. Patient presents today for c/o nasal congestion/pressu re, post nasal drainage, mild sore throat, ear pain/pressure x 7 days. Taking advil and robitussin prn without relief. Denies chest congestion, wheezing, SOB. AUNDREA TRACY Attn: Accounting,[address] [facility], [place], [address], [facility] 03/31/2019 13:53:29
[2024-11-14 00:38] LABS: Alanine Aminotransferase 247 U/L (6-50); Albumin Level 4.5 g/dL (3.5-5.1); Alkaline Phosphatase 89 U/L (38-126); Anion Gap 18 mmol/L (4-12); Aspartate Amino Transferase 257 U/L (17-59); Bilirubin,Total 4.7 mg/dL (0.2-1.3); Blood Urea Nitrogen 8 mg/dL (9-20); Calcium 9.0 mg/dL (8.4-10.2); Carbon Dioxide 19 mmol/L (22-30); Chloride 101 mmol/L (98-107); Estimated CRCL calculation 83 ml/min; Estimated Glomerular Filt Rate > 60; Glucose 184 mg/dL (65-110); Magnesium 1.7 mg/dL (1.6-2.3); Potassium 3.3 mmol/L (3.4-5.0); Sodium 138 mmol/L (137-145); Total Protein 7.6 g/dL (6.3-8.2)
[2024-11-14 00:39] LABS: Acetaminophen < 10 ug/mL (10-30); Salicylate < 1.0 mg/dL (2-20)
[2024-11-14 00:57] LABS: Creatine Kinase 466 U/L (55-170)
--- NOTE | 2024-11-14 01:44 | ED.ARRPALP ---
HPI - Arrhythmia/Palpitations General Chief Complaint: Seizure Stated Complaint: SZ, HTN, TACHY, BG IN 300's Time Seen by Provider: 11/14/24 00:03 History of Present Illness HPI narrative: Patient is a 54-year-old male who presents to the emergency department this evening status post seizure episode. Patient states that he was walking to the bathroom when he had the seizure and fell down. Denies any history of epilepsy but states that he did have a seizure in the past only once prior to this. States that he did follow-up with a neurologist and had an EEG performed revealed no epileptic activity. Upon arrival to the ED patient is alert and oriented x4, however, when EMS did arrive he was postictal. Shortly after patient's arrival, did arrive and did admit to us that the patient is an alcoholic and he drinks daily and stop drinking 2 days ago. She states that he has gone into alcohol withdrawals in the past with similar presentation. Related Data Home Medications ?Medication ?Instructions ?Recorded ?Confirmed ?Last Taken ?Type No Home Medications 09/13/24 Unknown History Allergies Allergy/AdvReac Type Severity Reaction Status Date / Time No Known Allergies Allergy Unverified 09/13/24 07:53 Review of Systems Review of Systems: All systems are reviewed and are negative unless stated otherwise in the HPI. [facility] History Surgical History History of neck surgery Social History Social History Social History: Caffeine-none Smoking status: Never smoker Alcohol intake: current Alcohol use details: whiskey Substance use: never Substance use type: does not use Exam Narrative: General: Alert, awake, afebrile, actively withdrawing from alcohol. HEENT: PERRL, no rhinorrhea, no post nasal drip, oropharynx clear. Neck: Trachea midline, no JVD, no lymphadenopathy. Cardiovascular: Regular rate and rhythm, no murmurs, rubs or gallops, no peripheral edema. Respiratory: Clear to auscultation bilaterally, no tachypnea, no wheezing, no rhonchi, no rubs, no respiratory distress. Abdomen: Soft, nontender, nondistended, no rebound, no guarding, no peritoneal signs. Musculoskeletal: No joint swelling or deformity, normal muscle tone, diffuse tremors. Skin: No rashes or petechia, no signs of infection. Psychiatric: Alert and oriented, normal behavior and judgment for situation, actively withdrawing from alcohol. Neurological: Alert and oriented to person, place, and time. Follows all commands. No focal deficits, speech is clear and fluent. Course Vital Signs Vital signs: Vital Signs Pulse Rate 131 H 11/14/24 00:03 Respiratory Rate 30 H 11/14/24 00:03 Blood Pressure 195/139 H 11/14/24 00:03 Pulse Oximetry 96 11/14/24 00:03 Oxygen Delivery Room Air 11/14/24 00:03 Pulse Rate 120 H 11/14/24 02:01 Respiratory Rate 27 H 11/14/24 02:01 Blood Pressure 177/126 H 11/14/24 02:00 Pulse Oximetry 96 11/14/24 02:01 Oxygen Delivery Room Air 11/14/24 00:37 MDM - Arrhythmia/Palpitations MDM Narrative Medical decision making narrative: The patient was evaluated by myself in the emergency department. History is obtained from patient who is an independent historian along with present at bedside and physical exam was performed. External medical records were reviewed at this time. IV was established and pertinent tests were ordered. Patient was noted to be hypertensive, tachycardic and tachypneic. Patient was administered 1 L IV fluid bolus with normal saline and 4 mg IV Zofran due to concern for alcohol withdrawals. EKG was obtained which revealed sinus tachycardia rate of 128 beats per min. No ST changes, T wave inversions or evidence of acute ischemia. EKG was independently interpreted by me and is currently pending official cardiology read. Laboratory results obtained revealing potassium of 3.3, bicarb of 19, anion gap of 18, glucose 184, lactic acid 9.4, AST to 57, ALT 247, CPK 466, beta hydroxybutyrate 2.39. Urinalysis unremarkable. UDS positive for cocaine, cannabinoids. Imaging studies obtained included CXR and CT brain without IV contrast which was independently interpreted by me revealing no acute process, which is pending final radiology interpretation. Differential diagnosis considerations include alcohol withdrawals, polysubstance abuse, seizure disorder, electrolyte derangements, dehydration. Comorbidities impacting this visit include history of alcohol abuse and previous alcohol withdrawal. I have evaluated and discussed social determinants of health with the patient that could potentially impact subsequent diagnosis and treatment plans. On repeat assessment of the patient, patient is now requesting to be discharged against medical advice. I did attempt to speak with the to have her try to convince the patient for hospital admission, however, she was unsuccessful, patient understands the risks including severe alcohol withdrawals, delirium tremens and and is still requesting to be discharged. Lab Data 11/14/24 00:13 11/14/24 00:13 Labs: Lab Results 11/14/24 11/14/24 11/14/24 Range/Units 00:10 00:13 02:07 WBC 8.8 (4.5-10.0) K/mm3 RBC 4.38 L (4.6-6.20) M/mm3 Hgb 15.3 (14.0-18.0) g/dL Hct 43.4 (42.0-52.0) % MCV 99.1 (80-100) fl MCH 34.9 H (26-34) pg MCHC 35.3 (32-36) g/dl RDW 11.9 (11.5-14.5) % Plt Count 115 L (150-375) k/mm3 MPV 9.8 (7.4-10.4) fl Immature Gran % (Auto) 0.5 (0-0.5) % Neut % (Auto) 85.5 H (45.5-73.1) % Lymph % (Auto) 4.0 L (18.3-44.2) % [place] % (Auto) 5.5 (2.6-8.5) % Eos % (Auto) 3.9 (0-4.4) % Baso % (Auto) 0.6 (0.2-1.2) % Lymph # (Auto) 0.35 L (0.9-3.2) K/mm3 [place] # (Auto) 0.5 (0.1-0.6) K/mm3 Eos # (Auto) 0.3 (0-0.3) K/mm3 Baso # (Auto) 0.1 (0.0-0.1) K/mm3 Abs Immat Gran (auto) 0.04 H (0.00-0.031) K/mm3 Absolute Neuts (auto) 7.5 H (1.3-6.7) K/mm3 Absolute Nucleated RBC 0.000 (0.0-0.012) K/mm3 Nucleated RBC % 0.0 (0.0-0.2) % % Immature Plt Fraction 3.8 (0.9-11.2) % Sodium 138 (137-145) mmol/L Potassium 3.3 L (3.4-5.0) mmol/L Chloride 101 (98-107) mmol/L Carbon Dioxide 19 L (22-30) mmol/L Anion Gap 18 H (4-12) mmol/L BUN 8 L (9-20) mg/dL Creatinine 0.95 (0.7-1.3) mg/dL Estim Creat Clear Calc 83 ml/min Estimated GFR > 60 (59 - ) Glucose 184 H (65-110) mg/dL POC Capillary Glucose 180 H (65-105) mg/dl Lactic Acid 9.4 H* (0.7-2.0) mmol/L Calcium 9.0 (8.4-10.2) mg/dL Magnesium 1.7 (1.6-2.3) mg/dL Total Bilirubin 4.7 H (0.2-1.3) mg/dL AST 257 H (17-59) U/L ALT 247 H (6-50) U/L Alkaline Phosphatase 89 (38-126) U/L Total Creatine Kinase 466 H (55-170) U/L Total Protein 7.6 (6.3-8.2) g/dL Albumin 4.5 (3.5-5.1) g/dL Beta-Hydroxybutyrate/Acetoacetate < 2.39 H (0.02-0.27) mmol/L Urine Color Yellow (Yellow) Urine Appearance Clear (Clear) Urine pH 5.5 (5.0-9.0) Ur Specific [place] 1.017 (1.001-1.035) Urine Protein 2+ H (Negative) mg/dL Urine Glucose (UA) 2+ H (Negative) mg/dL Urine Ketones Trace H (Negative) mg/dL Ur Blood (Man) Trace (Negative) Urine Nitrate Negative (Negative) Urine Bilirubin Negative (Negative) Urine Urobilinogen 1.0 (<2.0) mg/dL Leukocyte Esterase Rfl Negative (Negative) DOMITILA/UL Urine RBC 0-2 (0-2) /hpf Urine WBC 0-5 (0-3) /hpf Ur Squamous Epith Cells None seen (Few) /hpf Urine Bacteria None seen /hpf Urine Casts 0-2 Salicylates < 1.0 L (2-20) mg/dL Urine Opiates Screen Negative (Negative) Urine Methadone Screen Negative (Negative) Acetaminophen < 10 L (10-30) ug/mL Ur Barbiturates Screen Negative (Negative) Ur Phencyclidine Scrn Negative (Negative) Ur Amphetamine Screen Negative (Negative) U Benzodiazepines Scrn Negative (Negative) Urine Cocaine Screen Positive A (Negative) U Cannabinoids Screen Positive A (Negative) Ethyl Alcohol < 10 (<10) mg/dL Discharge Plan Discharge Clinical Impression: Alcohol withdrawal, Seizure due to alcohol withdrawal, History of alcohol abuse, Polysubstance abuse, Medical non-compliance, Transaminitis Patient Disposition: Left Against Medical Advice Condition: Critical Patient Language: Algerian Prescriptions: No Action No Home Medications Follow-up/Referrals: PHYSICIAN,REGISTERED DIETETIC TECHNICIAN [Primary Care Provider] -
[2024-11-14 01:50] LABS: Beta-Hydroxybutyrate/Acetoacetate < 2.39 mmol/L (0.02-0.27)
[2024-11-14 02:17] LABS: Add Urine Microscopic? YES; Appearance Urine Clear (Clear); Glucose Urine UA 2+ mg/dL (Negative); Leukocyte Esterase Ur Negative LEU/UL (Negative); Nitrate Urine Negative (Negative); Non Pathogenic Casts 0-2; Specific Grav Ur 1.017 (1.001-1.035)
[2024-11-14 02:34] LABS: Cannabinoid Screen Urine Positive (Negative)
== END 2024-11-14 02:20 | disposition left against medical advice (07) ==
LOC: ANHED 11-14 00:29
PROVIDERS: Emergency Provider Emergency Medicine
DX: F10.239 Alcohol dependence with withdrawal, unspecified (principal); R56.9 Unspecified convulsions; F19.10 Other psychoactive substance abuse, uncomplicated; R74.01 Elevation of levels of liver transaminase levels; Y90.0 Blood alcohol level of less than 20 mg/100 ml; R00.0 Tachycardia, unspecified; I51.7 Cardiomegaly
CPT/HCPCS: 36415; 70450; 71045; 80053; 80143; 80179; 80307; 81001; 82010; 82077; 82550; 82948; 83605; 83735; 85025; 85055; 93005; 96361; 96374; 99284; J2060; J7030